=== PATIENT | female | born 1970 | race Caucasian/White ===

== ENCOUNTER 2018-03-27 15:09 | Emergency (ER) | payer BC ==
[2018-03-27 15:25] VITALS: BP 126/73
--- NOTE | 2018-03-27 16:00 | ED Physician Documentation ---
Fall - HISTORIAN Historian: patient - HPI Stated Complaint: L ankle pain Chief Complaint: Lower Extremity Injury Additional Information: fell fr step this am sprained lt ankle - no fall - denies other injuries Onset: today (829) Where: home Context: slipped, lost balance r: mild, moderate Associated Symptoms:: no loss of consciousness Location of Pain/Injury: denies: head, neck, face, upper back, mid back, lower back Injury to Right Extremity: none Injury to Left Extremity: ankle (w/swelling lat tenderness) - ROS CONST: no problems MS/SKIN/LYMPH: denies: weakness, numbness EYES/ENT: none CVS/RESP: none - PAST HX Past History: other (kid stones) Allergies/Adverse Reactions: Allergies Allergy/AdvReac Type Severity Reaction Status Date / Time No Known Allergies Allergy Verified 03/27/18 15:25 Home Medications: Ambulatory Orders Medication Instructions Recorded Magnesium Citrate [Magnesium 1 cap PO DAILY 03/27/18 Citrate] Tizanidine HCl [Zanaflex] 1 tab PO DAILY 03/27/18 - SOCIAL HX Smoking History: non-smoker Alcohol Use: occasionally Drug Use: none - FAMILY HX Family History: no significant history - VITAL SIGNS Vital Signs: Vital Signs Temp Pulse Resp BP Pulse Ox 97.4 F L 81 16 126/73 100 03/27/18 15:15 03/27/18 15:15 03/27/18 15:15 03/27/18 15:15 03/27/18 15:15 - REVIEWED ASSESSMENTS Nursing Assessment Reviewed: Yes Vitals Reviewed: Yes ED Results Lab/Radiology - Radiology Radiology Impressions: sprained ankle no fx - Orders Orders: ED Orders Category Date Time Status LEFT ANKLE [ANKLE 3 VIEWS OR MORE] [RAD] Stat Exams 03/27/18 Ordered Fall Physical Exam - Physical Exam General Appearance: mild distress Head: non-tender, no swelling Neck: non-tender, painless ROM ENT: nml external inspection Resp/CVS: chest non-tender, no ecchymosis, breath sounds nml, no resp. distress , heart sounds nml Abdomen: soft, non-tender Neuro: oriented x3, sensation nml, motor nml, mood/affect nml Skin: color nml, no rash. No: cyanosis, diaphoresis, pallor, ecchymosis Back: normal inspection Extremities: other (lt ankle swollen lat tenderness) Joint: No: joints nml, nml ROM, Nml gait/weight bearing - Alisa Coma Score Eyes Open: Spontaneous Speech: Oriented Motor: Obeys Commands Discharge Clincal Impression: lt ankle sprain Referrals: Tosin Mendoza FNP [Primary Care Provider] - 2 Days Comments: home cane crutch ankle brace Condition: Good Disposition: 01 HOME, SELF-CARE Decision to Admit: NO (n) Decision Time: 16:20
--- NOTE | 2018-03-27 19:29 | Diagnostic Imaging Report ---
SHEYLA GREEN [facility] [address] [facility].[address] [id number] Report Submission Date: March 27, 2018 4:16:18 PM CDT Patient Study Name: EDIE RESENDIZ Date: March 27, 2018 3:45:29 PM CDT Modality Type: DX Gender: F Description: LOWER EXTREMITY : 70 Institution: [facility] Physician: SHEYLA GREEN Examination: Plain film left ankle History: LEFT ANKLE, PAIN IN LEFT LATERAL ANKLE AFTER FALL THIS MORNING (Hx) Findings: 3 views of the left ankle demonstrates normal cortical margins. Mild osteopenia. No fracture or dislocation. Talar dome is intact. The calcaneal spur. Lateral soft tissue swelling. No joint effusion. Impression: Mild degenerative changes. Lateral soft tissue swelling. No evidence for fracture. Electronically signed on March 27, 2018 4:16:18 PM CDT by: Balwinder SANCHEZ
== END 2018-03-27 16:25 | disposition home or self-care (01) ==
LOC: ED 15:09
DX: S93.402A Sprain of unspecified ligament of left ankle, initial encounter (principal); W19.XXXA Unspecified fall, initial encounter; Y92.9 Unspecified place or not applicable; Y93.9 Activity, unspecified; Y99.9 Unspecified external cause status
CPT/HCPCS: 73610